=== PATIENT | female | born 1970 | race Two or more races ===

== ENCOUNTER 2017-04-20 21:53 | Emergency (ER) | payer MEDICAID ==
[~2017-04-20] VITALS: Ht 154.9 cm; Wt 57.6 kg
[~2017-04-20 21:53] MED LIST: BENADRYL25 MG PO; DICLOXACILLIN500 MG ORAL; NKM; NORCO 5-325 TA1 EACH ORAL; PREDNISONE50 MG PO; RANITIDINE HCL150 MG PO
[2017-04-20] MEDS ORDERED: IBUPROFEN600 MG ORAL (22:12)
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
[2017-04-20] MEDS ORDERED: Norco 5mg/325mg tab ORAL ONE (22:15)
[2017-04-20 22:24] VITALS: BP 142/92
--- NOTE | 2017-04-21 10:43 | Diagnostic Imaging Report ---
Indication: Chest pain Technique: One view of the chest Comparison: 02/12/2008 Findings: Lungs and pleural spaces are clear. Heart size is normal. No significant change Impression: No acute process
== END 2017-04-20 22:25 | disposition home or self-care (01) ==
LOC: EMR 22:10
DX: S20.219A Contusion of unspecified front wall of thorax, initial encounter (principal); S39.012A Strain of muscle, fascia and tendon of lower back, initial encounter; V13.4XXA Pedal cycle driver injured in collision with car, pick-up truck or van in traffic accident, initial encounter; Y93.55 Activity, bike riding; Y92.89 Other specified places as the place of occurrence of the external cause
CPT/HCPCS: 71010; 99283